=== PATIENT | male | born 1960 | race Caucasian/White ===

== ENCOUNTER 2017-11-08 05:30 | Inpatient (IN) | payer BC ==
[2017-11-08 06:24] LABS: ABS Basophils 0 10^3/ul (0-0.2); ABS Eosinophils 0.2 10^3/ul (0-0.6); ABS Lymphocytes 1.6 10^3/ul (1.0-4.8); ABS Monocytes 0.6 10^3/ul (0-0.8); ABS Neutrophils 2.6 10^3/ul (1.5-7.7); ABS Nucleated RBC 0 10^3/ul; Eosinophil % 3.5 % (0-6); Hematocrit 39 % (42-52); Hemoglobin 13.5 g/dl (14.0-18.0); Lymphocyte % 31.7 % (25-47); Mean Corpuscular HGB Conc 35 g/dl (31-36); Mean Corpuscular Hemoglobin 32 pg (27-31); Mean Corpuscular Volume 91 fL (80-94); Mean Platelet Volume 8 um3 (7.4-10.4); Nucleated Red Blood Cells % 0.1; Platelet Count 176 10^3/ul (150-450); Red Blood Count 4.26 10^6/ul (4.0-5.4); Red Cell Distribution Width 13 % (10.5-15); White Blood Count 5.1 10^3/ul (3.5-10.8)
[2017-11-08 06:29] LABS: INR 0.86 (0.77-1.02)
[2017-11-08 06:39] LABS: EGFR Non-African American 71.5 (>60)
--- NOTE | 2017-11-08 07:58 | RAD ---
INDICATION: Chest pain COMPARISON: None TECHNIQUE: An AP portable view obtained at 0634 hours is submitted. FINDINGS: Bones/Soft Tissues: There are no acute bony findings. There is left-sided cardiac pacemaker/defibrillator Cardiomediastinal: The cardiomediastinal silhouette is normal. Lungs: There is bibasilar hypoventilation but no focal consolidation. Pleura: There are no pleural effusions. Other: None IMPRESSION: EXPIRATORY EXAMINATION WITH BIBASILAR HYPOVENTILATION. SUGGEST FOLLOW-UP INDICATED.
[2017-11-08] MEDS ORDERED: Morphine INJ* 2 MG/ML 1 ML CARPUJECT IV PRN (09:35)
[2017-11-08] MEDS ORDERED: Acetaminophen TAB* 325 MG PO PRN (09:35)
[2017-11-08] MEDS ORDERED: Ondansetron INJ* 2 MG/ML VIAL IV PRN (09:35)
[2017-11-08] MEDS ORDERED: Nitroglycerin TAB 0.4 MG* 0.4 MG TAB SL ONE (09:40)
[2017-11-08] MEDS ORDERED: Nitroglycerin 2% OINT* 1 GM PAK TOPICAL ONE (10:00)
[2017-11-08] MEDS ORDERED: Metoprolol Tartrate TAB* 25 MG PO ONE (10:43)
[2017-11-08] MEDS ORDERED: Perflutren Lipid Microsphere* 3 ML VIAL ONE (14:17)
--- NOTE | 2017-11-08 15:21 | ECHO ---
Patient: GILBERTO RODRIGUES [facility] Rec#: [id number] : 1960 Date: 11/08/2017 Age: 57y Height: 177.8 cm / 70.0 in Weight: 87.54 kg / 192.9 lbs Sex: M BSA: 2.06 Room#: 438 Admit Date#: 11/08/2017 Type: Inpatient Referring: Andrae Mead MD Reading: Andrae Mead MD Pairing Machine Operator: Hyun Wooten [facility] Transthoracic Echocardiogram Indication: CP BP: 118/73 HR: 61 Rhythm: NSR Findings History: IA 2005,s/p AICD implant 2006, HTN with rx. Technical Comments: The study is technically limited due to patient body habitus. Definity used to enhance images. Completed at 1502. Left Ventricle: The left ventricular chamber size is decreased. Posterior wall hypertrophy is observed. The estimated ejection fraction is 50-55%. globally with borderline inferior wall hypokinesis Abnormal left ventricular diastolic function is observed. Left Atrium: The left atrium is normal in size. Right Ventricle: The right ventricular cavity size is normal. The right ventricular global systolic function is mildly reduced. A pacemaker wire is visualized in the right ventricle. Right Atrium: The right atrial cavity size is normal. A pacemaker wire is visualized in the right atrium. Aortic Valve: The aortic valve is trileaflet. There is no evidence of aortic regurgitation. There is no evidence of aortic stenosis. Mitral Valve: The mitral valve leaflets are mildly thickened. There is a trace of mitral regurgitation. There is no evidence of mitral stenosis. Tricuspid Valve: The tricuspid valve leaflets are normal. There is mild tricuspid regurgitation. There is evidence of borderline pulmonary hypertension. There is no tricuspid stenosis. Pulmonic Valve: The pulmonic valve appears normal. There is no evidence of pulmonic regurgitation. There is no pulmonic stenosis. Pericardium: The pericardium appears normal. Aorta: There is moderate dilatation of the ascending aorta.The ascending aorta is not well visualized. There is moderate dilatation of the aortic root. Pulmonary Artery: The main pulmonary artery appears normal. Venous: The venous system is not well visualized. Contrast: Definity was used to optimize study. A total of 3 ml used. Intravenous contrast was used to enhance endocardial border definition. Summary: There was not any prior study for comparison. Conclusions TDS. The endocardium is not well visualized. The estimated ejection fraction is 50-55%. globally with borderline inferior wall hypokinesis Abnormal left ventricular diastolic function is observed. A pacemaker wire is visualized in the right ventricle. A pacemaker wire is visualized in the right atrium. There is a trace of mitral regurgitation. There is mild tricuspid regurgitation. There is evidence of borderline pulmonary hypertension. Measurements Name Value Normal Range RVIDd (AP) 2D 2.5 cm (0.9 - 2.6) RVDdMajor (2D) 4.3 cm (2.2 - 4.4) RAd ISD 4CH 5.2 cm (3.4 - 4.9) RA (A4C)W 3.8 cm (2.9 - 4.6) IVSd (2D) 1 cm (0.6 - 1) LVPWd (2D) 1.1 cm (0.6 - 1) LVIDd (2D) 3.2 cm (3.6 - 5.4) LVIDs (2D) 2.7 cm - LV FS (2D) 16 % (25 - 45) Aortic Annulus 2.4 cm (1.4 - 2.6) Ao root diameter (2D) 4.2 cm (2.1 - 3.5) Ascending Ao 4 cm (2.1 - 3.4) Aortic arch 2.6 cm (1.8 - 3.4) Descending Ao 0.9 cm - LA dimension (AP) 2D 3.7 cm (2.3 - 3.8) LAd ISD 4CH 5.3 cm (2.9 - 5.3) LA ISD 4CH W 3.4 cm (2.5 - 4.5) Name Value Normal Range LA ESV SP 4CH (A/L) 39 ml - LA ESV SP 2CH (A/L) 75 ml - LA ESV BP (A/L) 57 ml - LA ESV BP (A/L) index 27.86 ml/m2 - LA ESV SP 4CH (MOD) 36 ml - LA ESV SP 2CH (MOD) 71 ml - Name Value Normal Range MV E-wave Vmax 0.6 m/sec - MV deceleration time 240 msec - MV A-wave Vmax 0.6 m/sec - MV E:A ratio 0.9 ratio - LV septal e' Vmax 0.07 m/sec - LV lateral e' Vmax 0.09 m/sec - LV E:e' septal ratio 8.57 ratio - LV E:e' lateral ratio 6.67 ratio - Name Value Normal Range AV Vmax 1 m/sec - AV VTI 18.8 cm - AV peak gradient 4.06 mmHg - AV mean gradient 1.71 mmHg - LVOT Vmax 0.8 m/sec - LVOT VTI 16.9 cm - LVOT peak gradient 2.31 mmHg - LVOT mean gradient 0.91 mmHg - Name Value Normal Range TR Vmax 2.6 m/sec - TR peak gradient 26 mmHg - RAP 8 mmHg - RVSP 34 mmHg - Name Value Normal Range PV Vmax 0.7 m/sec - PV peak gradient 2.02 mmHg -
[2017-11-08] MEDS ORDERED: Iohexol 350* (CONTRAST) 500 ML MDV IV ONE (15:28)
--- NOTE | 2017-11-08 16:11 | RAD ---
HISTORY: Chest pain, rule out aortic dissection COMPARISONS: None relevant TECHNIQUE: Multiple contiguous axial CT scans of the chest were obtained after the administration of nonionic intravenous contrast, timed to the systemic arterial phase of contrast enhancement.. Coronal and sagittal multiplanar reformations are also submitted for review. 3-D volumetric reconstructions of the aorta are submitted for review FINDINGS: NECK AND THYROID: The lower neck and thyroid are unremarkable. CHEST WALL: There is no lower cervical, axillary, or supraclavicular lymphadenopathy by size criteria. A left-sided pacemaker is noted HEART AND PERICARDIUM: Coronary calcifications are noted. AORTA AND PULMONARY VASCULATURE: The aorta is tortuous. There is no dilatation or intimal flap to suggest dissection. There is no periaortic hematoma. The pulmonary vasculature is unremarkable. MEDIASTINUM: There is no mediastinal lymphadenopathy by size criteria. EMELI: There is no hilar lymphadenopathy by size criteria. AIRWAY AND ESOPHAGUS: The airway is unremarkable, without endobronchial filling defect. The esophagus is grossly normal. LUNG PARENCHYMA: The lungs are clear. PLEURA: No pleural abnormalities are noted. UPPER ABDOMEN: The upper abdomen is unremarkable. BONES AND SOFT TISSUES: Mild degenerative changes are noted OTHER: None. IMPRESSION: 1. NO INTIMAL FLAP TO SUGGEST AORTIC DISSECTION. 2. TORTUOUS AORTA. 3. NO ANEURYSMAL DILATATION 4. ATHEROSCLEROSIS.
--- NOTE | 2017-11-08 19:46 | CONS ---
CC: Dr. Lisa, Hospitalist Service; Dr. Mead * CARDIOLOGY CONSULTATION: DATE OF CONSULT: 11/08/17 HISTORY OF PRESENT ILLNESS: I was asked by Dr. Lisa to see this pleasant 57 - year-old male patient who presented to the emergency room earlier today after he woke up at about 4 o'clock in the morning with some chest pressure. The patient is with known history of coronary artery disease. He used to follow up at the [facility] with the Cardiology Services there. With history of known coronary artery disease, we are still trying to obtain the full medical records for him including totally occluded chronically right coronary artery with good collaterals according to the patient "mild heart attack either in 2004 or 2005." He does have also a history of nonsustained V-tach with history of syncope. He had EP study that was abnormal according to the patient and needed ICD implantation and generator change in 2017. He had history of hypertension, which he has been on medical treatment, hyperlipidemia on medical treatment. He could not tolerate beta- blockers in the past because his resting heart rate is bradycardic as well as giving him significant fatigue. He is actually with very regular exercise activity, skiing, treadmill, and jogging without limiting symptoms. He said he does have history of gastroesophageal reflux disease and hiatal hernia. He had upper endoscopy in the past. He also had a cardiac catheterization about 5 to [address] Barton at the [facility] that was told he had totally occluded chronically right coronary artery, unsuccessful attempt to open it according to the patient and some noncritical disease of the coronary system. Again, full information not immediately available to me. He had an episode of some chest pain 2 years ago and he had a stress test that was normal. He said he had multiple stress tests in the past including nuclear stress and a 3D echo stress test. He had at this morning he said he was sleeping, part of the dream that he had chest pain and when he woke up he felt chest pressure. There was no jaw pain, no arm pain, no nausea, no vomiting, no fever, no chills, no skin rash, no thrombosis, no hematochezia. He took 3 sublingual nitro, the third one he felt much better. He said when he walked out in the cold to go to the car or the ambulance, he felt the pain. He is chest pain free. He has been chest pain free since emergency room. He had 2 troponins that they were normal 0.01. He had 2 EKGs since his hospitalization that both of them shown sinus bradycardia, concave diffuse ST elevation especially in leads II, III, aVF, V5, V6 without any significant ST-T changes, ischemia or infarction. Cardiology consult was further requested because of his symptoms and consideration for further management. PAST MEDICAL HISTORY: Includes history of systemic arterial hypertension, hyperlipidemia, history of gastroesophageal reflux disease, history of hiatal hernia, history of mild "heart attack," history of cardiac catheterization with chronically totally occluded right coronary artery with good collaterals and unsuccessful attempt to open it. PAST SURGICAL HISTORY: Include history of right knee arthroscopy and history of hernia when he was 6 months old. MEDICATIONS: His medications as an outpatient include losartan 50 mg daily and he is also on Lipitor 40 mg daily and baby aspirin. He could not tolerate beta - blockers in the past. His medications as an inpatient include: 1. Tylenol 650 mg p.o. q.4 hours p.r.n. 2. Aspirin 81 mg daily. 3. Lipitor 40 mg daily. 4. Cozaar 50 mg daily. 5. Prilosec 20 mg daily. 6. Zofran 4 mg IV q.4 hours p.r.n. ALLERGIES: He had no known allergies. FAMILY HISTORY: He has family history of coronary artery disease, although was not premature. SOCIAL HISTORY: He has kids, doing well. REVIEW OF SYSTEMS: His review of all other systems essentially is negative. PHYSICAL EXAMINATION: On exam, he is awake, alert, and oriented. He is not in acute distress. He is chest pain free. Vitals: Blood pressure is 118/73, pulse 67 and sinus rhythm, temperature 98.4, respiratory rate 18. Head and Neck Exam: Normocephalic, atraumatic head. Ears, Nose, and Throat: Essentially benign. Neck: Supple. JVP is not elevated. No carotid bruits. No masses in the neck is appreciated. Chest: Clear to auscultation. No rales , no wheezes, no added sounds appreciated. Heart: Normal. Regular S1, S2. No added sounds. No gallops, no rubs appreciated. Abdomen: Benign, soft. Positive bowel sounds. Extremities: No edema, no cyanosis, no clubbing. Skin exam is normal. Psych: Normal affect and mood. STAND UP COMEDIAN: No focal deficit is appreciated. DIAGNOSTIC STUDIES/LAB DATA: His 2 EKGs as described above. His labs showed sodium 137, potassium 3.5, chloride 103, BUN 12, creatinine 1.07. LFTs normal. Troponin 0.01 x2. CK-MB 1.6. White blood cell 5.1, hemoglobin 13.5, hematocrit 39, platelets 176. His chest x-ray was reported to have expiratory examination with bibasilar hypoventilation, suggest followup as indicated. No pleural effusion appreciated. No focal consolidation. IMPRESSION: The patient is a 57-year-old male patient with: 1. Presentation with symptoms of chest pressure and pain to be further evaluated. He is chest pain free. 2. His troponins x2 are normal. His EKG did not demonstrate any significant EKG changes suggestive of ischemia or infarction. 3. Known history of coronary artery disease followed up for a long period of time at the [facility] with totally occluded chronically right coronary artery with unsuccessful attempts to open it and with good collaterals according to the patient. 4. History of mild "heart attack" as per the patient. 5. Systemic arterial hypertension. 6. Hyperlipidemia. 7. Resting sinus bradycardia. The patient is regularly active with exercises. 8. He could not tolerate beta-blockers in the past. 9. History of nonsustained ventricular tachycardia and syncope. 10. Status post ICD implantation 10 years ago and with generator change in 2017 at the [facility] after he had abnormal positive EP study for ventricular tachycardia, according to him was inducible. 11. Family history of coronary artery disease, although was not premature. 12. Hypokalemia. PLAN: I have discussed him with Dr. Lisa. I had a lengthy talk with the patient today given he is chest pain free, given his troponins are negative, given that EKG did not demonstrate any acute dynamic ST-T changes for ischemia or infarction, I think we can observe him very closely at the present time. He could not tolerate beta-blockers in the past, but I think we will add at the present time amlodipine, we will start with the low dose 2.5 mg daily. We will add nitro very low dose as he is already doing nitro paste. An echocardiogram will be helpful to evaluate his left ventricular systolic function, wall motion , coronary artery disease. A nuclear treadmill stress will be very helpful to identify symptoms willoughby and ischemia, which I explained all of this to the patient today. Any further recommendations will be pending his clinical outcome. If for any reason he became very symptomatic, hemodynamically unstable or troponins become very abnormal or significant EKG changes, consideration should be given to cardiac catheterization to evaluate and followup in his already known coronary artery disease. Thank you very much for asking us to participate in the care of this patient. [id number]/[facility] #: [id number] HIRAL
--- NOTE | 2017-11-08 22:16 | HP ---
HISTORY AND PHYSICAL: DATE OF ADMISSION: 11/08/17 TIME OF MY EVALUATION: 9 a.m. PRIMARY CARE PROVIDER: None. CHIEF COMPLAINT: Chest pain. HISTORY OF PRESENT ILLNESS: Mr. Arauz is a 57-year-old man who recently moved to [place] from [place] and has a history of known coronary artery disease. He awoke this morning from his sleep at 4 a.m. with substernal chest pain with radiation of hte pain to his left arm and sweating in his palms. The patient felt the pain and was actually dreaming about having pain and fully awoke at 4 a.m. He states it was fairly severe rating it 8/10 in intensity. The patient took three 81 mg aspirins and attempted to leave his home to be driven by his to the hospital. He had taken an initial nitroglycerin without relief. The patient felt worsening pain when he left his home and summoned EMS and did experience chest relief on the third nitroglycerin that he took. He was started on oxygen. He was given a fourth nitroglycerin by EMS and experienced a headache, but his chest pain was relieved. The patient reported a history of a myocardial infarction in 2005 with a fully occluded right coronary artery that was not amenable to stenting at that time. There was evidence of left to right collateralization. The patient had a subsequent angiogram in 2013 that showed some recanalization of his RCA (~2%). The patient has an ICD in situ that was replaced in March 2017. The patient has a known cardiomyopathy, though he has not required antianginal medications, and has been managed medically since 2005. he does not tolerate beta blockers. The patient does not have a local landing signal officer. He is interested in establishing one. He is being referred to the hospitalist service for admission. The patient has reexperienced chest pain and the concern for unstable angina has been raised. The patient was initially ordered beta- merlyn. He has been started on nitro paste and he is being admitted to the hospital for management of ongoing chest pain/unstable angina. PAST MEDICAL HISTORY: 1. Known coronary artery disease, status post totally occluded RCA in 2005 in the setting of an CA. 2. Hypertension. 3. Anxiety. 4. GERD. OUTPATIENT MEDICATIONS: 1. Vitamin D 2000 units by mouth daily. 2. Aspirin 81 mg by mouth daily. 3. Lipitor 40 mg by mouth daily. 4. Avapro 300 mg by mouth daily. 5. Protonix 40 mg by mouth daily. ALLERGIES: No known drug allergies. FAMILY HISTORY: No reported family history relevant to the current presentation. 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 REVIEW OF SYSTEMS: Review of 14 systems was accomplished with the patient. This was largely negative except for the pertinent positives as mentioned above in the HPI and past medical history. I do note the patient described upper back pain that was new for him and he reported his last stress test was 3 years ago. This was a stress echo that was generally normal. The patient denied taking any antianginal medications. He has not had any recent upper respiratory or febrile illnesses. He does describe stress in his occupation. PHYSICAL EXAMINATION ON ADMISSION GENERAL APPEARANCE: Middle-aged man, no apparent distress. Awake, alert and oriented x3. Answering questions appropriately. VITALS: Temperature 98.4 Fahrenheit, blood pressure 120s/70s, pulse rate 50s to 60s and regular, respirations 16 and unlabored, oxygen saturation 96% on room air. HEENT: Oropharynx is clear. Mucous membranes dry. No posterior pharyngeal erythema or exudate. LUNGS: Clear to auscultation anteriorly and posteriorly. HEART: Regular rate and rhythm. No murmurs, rubs, or gallops appreciated. ICD in place/in situ. ABDOMEN: Soft and nontender. No masses, rebound, guarding. EXTREMITIES: Without clubbing, cyanosis, or edema. LYMPH: No adenopathy. NEURO: No focal weakness or sensory loss. SKIN: Dry and intact. No rashes, lesions, or breakdown. PSYCH: Normal affect. No acute anxiety or depression. ADMISSION DATA: Sodium 137, potassium 3.5, chloride 103, bicarb 28, BUN 12, creatinine 1.07, glucose 104. Lactic acid 1.3. Calcium 8.8. Magnesium 1.9. Total bilirubin 0.6, AST 24, ALT 37, alk phos 52. CK-MB 1.6. Troponin 1.01 x2 values at 0555 hours and 0953 hours. Total protein 5.8. Albumin 3.6. IMAGING: His EKG was in normal sinus rhythm. No evidence of active ischemia, ST or T wave changes. His CTA did not show any evidence of aortic dissection, but did show a tortuous aorta with no aneurysmal dilatation, but noted atherosclerosis. IMPRESSION: Mr. Arauz is a 57-year-old gentleman with known coronary artery disease, status post myocardial infarction in 2005, status post ICD at that time , now with concerning chest pain very responsive to nitroglycerin with negative troponins x 2 and concern for unstable angina/myocardial infarction in evolution. Mr. Arauz is being placed on telemetry. He will be treated with nitro paste to suppress his angina. He is currently pain free. I have consulted Dr. Mead, who kindly saw the patient and agrees with ruling out myocardial infarction and then proceeding with a stress test providing the patient does not have further pain. The patient had an echocardiogram, which showed normal ejection fraction with borderline inferior wall hypokinesis - certainly consistent with his history of myocardial infarction and total RCA occlusion. Pacemaker wires were visualized in the right ventricle and right atrium. There was borderline pulmonary hypertension. Otherwise, the findings were unremarkable. The patient is in good spirits at this time. The CTA was accomplished as above. He will have IV morphine and antianginal step therapy ordered on a p.r.n. basis and the patient will proceed with a stress test on the morning of 11/09/17. Cardiology consultation was ordered and completed and is appreciated. Dr. Mead will likely continue to follow the patient in the community. I will add on a cholesterol panel to assess the adequacy of his lipid control. Further decisions will be based on his clinical course. TOTAL SPENT: Total time taken to admit Mr. Arauz was 75 minutes, greater than half that time spent at the bedside and explaining the patient's plan of care and communicating with his former landing signal officer in [place]. [id number]/[facility] #: [id number] HIRAL
--- NOTE | 2017-11-09 00:35 | ED ---
Yovany Mireles Gabriel, scribed for Lissa Jenkins MD on 11/08/17 at 0608 . HPI Chest Pain - HPI Summary HPI Summary: This patient is a 57 year old M BIBA to [facility] accompanied by his with a chief complaint of CP that woke him from his sleep at 0400 this morning. The patient rates the pain 8/10 in severity at onset. Took 3 baby ASA and tums at 0400. At 0420 pt took NTG at with no relief so he took another nitro a few minutes after and then her took a 3rd nitro as EMS arrived. This along with O2 given from EMS his pain dropped. Pt was given a 4th nitro by EMS and currently has no CP but is having a headache. Hx of CO in 2005 with fully occluded right coronary artery. In 2013 2% recanalization on the right side. Has ICD that was changed in 03/2017. - History of Current Complaint Chief Complaint: EDChestPainROMI Time Seen by Provider: 11/08/17 05:58 Hx Obtained From: Patient Onset/Duration: Started Hours Ago, Resolved Timing: Lasting Hours Initial Severity: Severe Current Severity: None Pain Intensity: 8 Pain Scale Used: 0-10 Numeric Chest Pain Location: Diffuse Chest Pain Radiates: No Associated Signs and Symptoms: Positive: Negative, Headaches - Allergy/Home Medications Allergies/Adverse Reactions: Allergies Allergy/AdvReac Type Severity Reaction Status Date / Time No Known Allergies Allergy Verified 11/08/17 05:44 PMH/Surg Hx/FS Hx/Imm Hx Cardiovascular History: Reports: Hx Angina, Hx Hypercholesterolemia, Hx Myocardial Infarction, Hx Pacemaker/ICD Respiratory History: Denies: Hx Chronic Obstructive Pulmonary Disease (COPD) GI History: Reports: Hx Gastroesophageal Reflux Disease Denies: Hx Cirrhosis, Hx Diverticulosis Sensory History: Denies: Hx Eye Injury, Hx Eye Prosthesis Infectious Disease History: No Infectious Disease History: Reports: Traveled Outside the [place] in Last 30 Days - Family History Known Family History: Positive: Cardiac Disease Negative: Renal Disease, Respiratory Disease, Seizure Disorder - Social History Occupation: Employed Full-time Lives: With Family Alcohol Use: Occasionally Substance Use Type: Reports: None Smoking Status (MU): Never Smoked Tobacco Review of Systems Negative: Fever Positive: Chest Pain Positive: Headache All Other Systems Reviewed And Are Negative: Yes Physical Exam - Summary Physical Exam Summary: VITAL SIGNS: Reviewed. GENERAL: Patient is a well-developed and nourished male who is lying comfortable in the stretcher. Patient is not in any acute respiratory distress. HEAD AND FACE: No signs of trauma. No ecchymosis, hematomas or skull depressions. No sinus tenderness. EYES: PERRLA, EOMI x 2, No injected conjunctiva, no nystagmus. EARS: Hearing grossly intact. Ear canals and tympanic membranes are within normal limits. MOUTH: Oropharynx within normal limits. NECK: Supple, trachea is midline, no adenopathy, no JVD, no carotid bruit, no c- spine tenderness, neck with full ROM. CHEST: Symmetric, no tenderness at palpation LUNGS: Clear to auscultation bilaterally. No wheezing or crackles. CVS: Regular rate and rhythm, S1 and S2 present, no murmurs or gallops appreciated. ABDOMEN: Soft, non-tender. No signs of distention. No rebound no guarding, and no masses palpated. Bowel sounds are normal. EXTREMITIES: FROM in all major joints, no edema, no cyanosis or clubbing. NEURO: Alert and oriented x 3. No acute neurological deficits. Speech is normal and follows commands. SKIN: Dry and warm Triage Information Reviewed: Yes Vital Signs On Initial Exam: Initial Vitals Temp Pulse Resp BP Pulse Ox 98.4 F 72 18 103/61 97 11/08/17 05:38 11/08/17 05:38 11/08/17 05:38 11/08/17 05:38 11/08/17 05:38 Vital Signs Reviewed: Yes Diagnostics - Vital Signs Vital Signs Temp Pulse Resp BP Pulse Ox 11/08/17 05:38 98.4 F 72 18 103/61 97 - Laboratory Result Diagrams: 11/08/17 05:55 11/08/17 05:55 Lab Statement: Any lab studies that have been ordered have been reviewed, and results considered in the medical decision making process. - Radiology cxr Radiology Interpretation Completed By: ED Physician - no acute process - EKG 0545 Cardiac Rate: NL EKG Rhythm: Sinus Rhythm - at 60 BPM EKG Interpretation: non specific t wave changes Chest Pain Course/Dx - Course Assessment/Plan: This patient is a 57 year old M BIBA to [facility] accompanied by his with a chief complaint of CP that woke him from his sleep at 0400 this morning. The patient rates the pain 8/10 in severity at onset. Took 3 baby ASA and tums at 0400. At 0420 pt took NTG at with no relief so he took another nitro a few minutes after and then her took a 3rd nitro as EMS arrived. This along with O2 given from EMS his pain dropped. Pt was given a 4th nitro by EMS and currently has no CP but is having a headache. Hx of CO in 2005 with fully occluded right coronary artery. In 2013 2% recanalization on the right side. Has ICD that was changed in 03/2017. An EKG reveals nsr at 60 BPM non specific t wave changes. CXR reveals, no acute process. Test results with no significant abnormalities. Dx chest pain. We discussed patient care with Dr. Finley and they accepted the patient for admittance. Patient will be admitted. The patient is agreeable with this plan. - Diagnoses Provider Diagnoses: Chest pain Discharge - Discharge Plan Condition: Fair Disposition: ADMITTED TO [facility] Referrals: Non Staff,Doctor [Primary Care Provider] - The documentation as recorded by the Yovany wright Gabriel accurately reflects the service I personally performed and the decisions made by me, Lissa Jenkins MD.
[2017-11-09] MEDS ORDERED: Atorvastatin* 40 MG TAB PO SCH (09:00)
[2017-11-09] MEDS ORDERED: Losartan TAB* 25 MG PO SCH (09:00)
--- NOTE | 2017-11-09 10:50 | RAD ---
Edited for charges. INDICATION: Chest pain. Cardiac pacemaker. COMPARISON: November 08, [address] TECHNIQUE: 10.900 mCi of Tc-99m Myoview were administered IV. SPECT images of the heart were obtained. Later on the same day. Under the direction of Dr. eTsfaye, an exercise stress test was performed. The patient achieved a peak heart rate of 130 bpm, 79 % of the age- predicted maximum. Subsequently, the patient was given an IV injection of 25.900 mCi Tc- 99m Myoview. SPECT images of the heart were obtained and a gated wall motion study was performed. FINDINGS: Gated wall motion images were obtained at stress and demonstrate wall motion to be within normal limits. The calculated left ventricular ejection fraction is 64 % at stress. Estimated LEFT ventricular end diastolic volume is 108 mL. TID 0.99. Artifact from diaphragmatic attenuation and inferior gut activity noted. Grossly fixed decreased activity at the inferior wall primarily on the nonattenuation corrected series appears secondary to diaphragmatic attenuation. Small region of decreased perfusion at the basilar anterior wall segments at stress with reversal at rest suspicious for potential ischemia. IMPRESSION: 1. Suggestion of a potential solitary small focus of ischemia at the basilar segment of the anterior wall. 2. Normal LEFT ventricular wall motion and estimated end-diastolic volume. ASSESSMENT: Low risk based on nuclear portion. Based on imaging criteria from ACC/AHA 2002 Guideline Update for the Management of Patients With Chronic Stable Angina Table 23. Noninvasive Risk Stratification. MTDD
[2017-11-09] MEDS: Omeprazole CAP* 20 MG PO SCH (10:59)
[2017-11-09] MEDS: amLODIPine TAB* 5 MG PO SCH (10:59)
[2017-11-09] MEDS: Aspirin EC Low Dose* 81 MG TAB.EC PO SCH (10:59)
--- NOTE | 2017-11-09 15:58 | PN ---
Subjective Date of Service: 11/09/17 Interval History: Pt had CP during stress test. Initially requested transfer to [facility] , but later on declined to be transferred and agreed to stay at [facility] Currently CP free Objective Active Medications: Acetaminophen (Tylenol Tab*) 650 mg PO Q4H PRN PRN Reason: FEVER/PAIN Last Admin: 11/08/17 19:58 Dose: 650 mg Amlodipine Besylate (Norvasc Tab*) 2.5 mg PO DAILY [facility] Last Admin: 11/09/17 10:59 Dose: 2.5 mg Aspirin (Aspirin Ec Low Dose*) 81 mg PO DAILY [facility] Last Admin: 11/09/17 10:59 Dose: 81 mg Atorvastatin Calcium (Lipitor*) 40 mg PO DAILY [facility] Last Admin: 11/09/17 10:59 Dose: 40 mg Losartan Potassium (Cozaar Tab*) 50 mg PO DAILY [facility] Last Admin: 11/09/17 10:59 Dose: 50 mg Morphine Sulfate (Morphine Inj (Syringe)*) 2 mg IV Q4H PRN PRN Reason: PAIN Omeprazole (Prilosec Cap*) 20 mg PO DAILY [facility] Last Admin: 11/09/17 10:59 Dose: 20 mg Ondansetron HCl (Zofran Inj*) 4 mg IV Q4H PRN PRN Reason: NAUSEA/VOMITING Vital Signs - 8 hr 11/09/17 11/09/17 11/09/17 08:28 11:08 15:29 Temperature 98.3 F 97.6 F 97.5 F Pulse Rate 56 61 76 Respiratory 16 16 14 Rate Blood Pressure 119/72 144/83 113/63 (mmHg) O2 Sat by Pulse 97 100 96 Oximetry Oxygen Devices in Use Now: None Appearance: 57 yo m in nAD, AAOx3 Eyes: No Scleral Icterus, PERRLA Ears/Nose/Mouth/Throat: NL Teeth, Lips, Gums, Mucous Membranes Moist Neck: NL Appearance and Movements; NL JVP, Trachea Midline Respiratory: Symmetrical Chest Expansion and Respiratory Effort, Clear to Auscultation Cardiovascular: NL Sounds; No Murmurs; No JVD, RRR Abdominal: NL Sounds; No Tenderness; No Distention Lymphatic: No Cervical Adenopathy Extremities: No Edema Skin: No Rash or Ulcers, No Nodules or Sclerosis Neurological: Alert and Oriented x 3, NL Muscle Strength and Tone Result Diagrams: 11/08/17 05:55 11/08/17 05:55 Assess/Plan/Problems-Billing Assessment: 57 yo M with h/o CAD presents with CP. CP recurred during stress test today. - Patient Problems (1) Chest pain Comment: likely due to angina. Pt has h/o exertional angina in the past. His cath in 2012 showed critical RCA stenosis-not amenable for intervention Cont ASA Cath planned for tomorrow. Appreciate Dr. Hess's consult. stress test with no marked changes, but pt's symptoms are worrisome and cath is planned for AM. Due to low SBP losartan will be held and low dose of Norvasc will be continued (2) Dyslipidemia Comment: cont current statin (3) GERD (gastroesophageal reflux disease) Comment: Protonix substituted with omeprazole (4) DVT prophylaxis Comment: Lovenox Status and Disposition: OBV
[2017-11-09] MEDS ORDERED: Enoxaparin(*) 40 MG/0.4 ML SYR SUBCUT SCH (16:00)
[2017-11-09] MEDS ORDERED: NS 0.45% KCl 20 Meq 1000 ML* 1,000 ML IV SCH (17:00)
[2017-11-09] MEDS: Potassium Chloride LIQUID* 20 MEQ PACKET PO SCH (17:02)
[2017-11-09] MEDS ORDERED: Atorvastatin* 80 MG TAB PO SCH (17:51)
[2017-11-10 05:19] LABS: EGFR Non-African American 67.1 (>60)
--- NOTE | 2017-11-10 08:24 | PN ---
Subjective Date of Service: 11/10/17 Interval History: Pt stated that he had a very mild pain in left upper chest this aM upon awakening, lated seconds and it was hi "usual angina pain" that he has had " from time to time" Objective Active Medications: Acetaminophen (Tylenol Tab*) 650 mg PO Q4H PRN PRN Reason: FEVER/PAIN Last Admin: 11/08/17 19:58 Dose: 650 mg Amlodipine Besylate (Norvasc Tab*) 2.5 mg PO DAILY [facility] Last Admin: 11/09/17 10:59 Dose: 2.5 mg Aspirin (Aspirin Ec Low Dose*) 81 mg PO DAILY [facility] Last Admin: 11/09/17 10:59 Dose: 81 mg Atorvastatin Calcium (Lipitor*) 80 mg PO DAILY [facility] Sodium Chloride (Ns 0.9% 1000 Ml*) 1,000 mls @ 100 mls/hr IV .per rate [facility] Morphine Sulfate (Morphine Inj (Syringe)*) 2 mg IV Q4H PRN PRN Reason: PAIN Omeprazole (Prilosec Cap*) 20 mg PO DAILY [facility] Last Admin: 11/09/17 10:59 Dose: 20 mg Ondansetron HCl (Zofran Inj*) 4 mg IV Q4H PRN PRN Reason: NAUSEA/VOMITING Potassium Chloride (Klor-Con Liquid*) 20 meq PO DAILY [facility] Last Admin: 11/09/17 17:02 Dose: 20 meq Vital Signs - 8 hr 11/10/17 07:18 Temperature 97.4 F Pulse Rate 62 Respiratory 16 Rate Blood Pressure 130/80 (mmHg) O2 Sat by Pulse 100 Oximetry Oxygen Devices in Use Now: None Appearance: 57 yo M in nAd, aAOx3 Eyes: No Scleral Icterus, PERRLA Ears/Nose/Mouth/Throat: NL Teeth, Lips, Gums, Mucous Membranes Moist Neck: NL Appearance and Movements; NL JVP, Trachea Midline Respiratory: Symmetrical Chest Expansion and Respiratory Effort, Clear to Auscultation Cardiovascular: NL Sounds; No Murmurs; No JVD, RRR Abdominal: NL Sounds; No Tenderness; No Distention Lymphatic: No Cervical Adenopathy Extremities: No Edema, No Clubbing, Cyanosis Skin: No Rash or Ulcers, No Nodules or Sclerosis Neurological: Alert and Oriented x 3, NL Muscle Strength and Tone Result Diagrams: 11/08/17 05:55 11/10/17 06:48 Assess/Plan/Problems-Billing Assessment: 57 yo M with h/o CAD presents with CP. CP recurred during stress test today. - Patient Problems (1) Chest pain Comment: likely due to angina. Pt has h/o exertional angina in the past. His cath in 2012 showed critical RCA stenosis-not amenable for intervention Cont ASA Cath planned for today. Appreciate Dr. Hess's consult. stress test with no marked changes, but pt's symptoms are worrisome and cath is planned for AM. Due to low SBP losartan was held and low dose of Norvasc will be continued (2) Dyslipidemia Comment: lipitor increased from 40 to 80 mg by cardiology (3) GERD (gastroesophageal reflux disease) Comment: Protonix substituted with omeprazole (4) DVT prophylaxis Comment: Lovenox Status and Disposition: OBV will be switched to inpatient
[2017-11-10] MEDS ORDERED: NS 0.9% 1000 ML* 1,000 ML IV SCH ×2 (09:00→13:30)
[2017-11-10] MEDS: Aspirin EC Low Dose* 81 MG TAB.EC PO SCH (09:58)
[2017-11-10] MEDS: amLODIPine TAB* 5 MG PO SCH (09:58)
[2017-11-10] MEDS: Omeprazole CAP* 20 MG PO SCH (09:58)
[2017-11-10] MEDS: Potassium Chloride LIQUID* 20 MEQ PACKET PO SCH (09:59)
[2017-11-10] MEDS ORDERED: Midazolam* 1 MG/ML 10 ML VIAL (10 MG) ONE (11:57)
[2017-11-10] MEDS ORDERED: Heparin(*) 1000 UNIT/ML 10 ML VIAL CATH LAB IV ONE (11:57)
[2017-11-10] MEDS ORDERED: nitroGLYCERIN DRIP* 25,000 MCG/250 ML BTL ONE (11:57)
[2017-11-10] MEDS ORDERED: fentaNYL* 50 MCG/ML 2 ML VIAL (100 MCG VIAL) ONE ×2 (11:57→12:31)
[2017-11-10] MEDS ORDERED: VERAPAMIL 2.5 MG/ML 2 ML VIAL ** 5 mg/2 ml ONE (11:57)
[2017-11-10] MEDS ORDERED: Lidocaine 1% INJ* 10 MG/ML 30 ML SDV ONE (11:57)
[2017-11-10] MEDS ORDERED: Heparin 2 UNITS/ML IVPREMIX* 2,000 ML IV ONE (11:57)
[2017-11-10] MEDS ORDERED: Iohexol 350 (CONTRAST) 200 ML MDV IV ONE (11:57)
[2017-11-10] MEDS ORDERED: Iodixanol* (CONTRAST) 320 MG/ML 100 ML SDV ONE ×2 (12:16→12:18)
[2017-11-10] MEDS ORDERED: Atropine SYRINGE* 0.1 MG/ML 10 ML SYRINGE (1 MG) ONE (13:10)
[2017-11-10 18:21] VITALS: BP 109/74
--- NOTE | 2017-11-11 16:52 | DS ---
CC: Dr. Clint Calloway from [facility] Cardiology Department; Dr. Mead; Dr. Hess; Dr. Tesfaye * DISCHARGE SUMMARY: DATE OF ADMISSION: 11/08/17 DATE OF DISCHARGE: 11/10/17 DISCHARGE DIAGNOSES: Chest pain likely due to angina, status post cardiac catheterization on 11/10/17 with no intervention needed. From the verbal report that I got from Dr. Tesfaye, the overhead irrigator, the patient' s coronary vasculature was basically unchanged from prior cardiac catheterization with occlusion of RCA and presence of collaterals. SECONDARY DIAGNOSES: 1. History of coronary artery disease with occlusion of RCA in the past. 2. History of hypertension. 3. Anxiety. 4. Gastroesophageal reflux disease. 5. Dyslipidemia. MEDICATIONS AT DISCHARGE: Include: 1. Protonix 40 mg daily. 2. Vitamin D3 2000 units daily. 3. Lipitor 80 mg daily. 4. Aspirin 81 mg daily. 5. Amlodipine 2.5 mg daily. Please note that the changes were as follows: 1. The patient's Lipitor dose was increased from 40 to 80 mg. 2. The patient's Avapro was discontinued and the patient was started on low- dose Norvasc. 3. The patient was also instructed by Cardiology to use nitroglycerin as needed and prior to exercise. LABORATORY DATA AND STUDIES PERFORMED DURING THE HOSPITAL STAY: Included: On , sodium of 137, potassium of 4.0, chloride 106, carbon dioxide 25, BUN 13 , creatinine 1.13. Liver function tests were unremarkable at admission. The patient's troponins continued to be negative at 0.01 throughout the hospital stay. Triglycerides of 106, cholesterol total of 140, LDL of 77, HDL of 42. Nuclear medicine cardiac stress test documented on 11/09/17 showed suggestion of potential solitary small focus of ischemia in the basilar segment of the anterior wall. Normal left ventricular wall motion and estimated end diastolic volume. The patient's EF was noted to be 64 at stress. Please note that the patient's exercise part of stress test was submaximal due to development of chest pain during the treadmill. CT angiogram of the chest obtained on 11/08/17, impression: "No intimal flap to suggest aortic dissection. Tortuous aorta. No aneurysmal dilatation. Atherosclerosis." CONSULTATIONS DURING THE HOSPITAL STAY: Included Dr. Mead and Dr. Hess from Cardiology and Dr. Tesfaye from Interventional Cardiology. PROCEDURES PERFORMED DURING THE HOSPITAL STAY: Included cardiac catheterization performed by Dr. Tesfaye on 11/10/17 with formal report pending at the time of dictation. HOSPITALIZATION COURSE: Go Arauz is a 57-year-old male with history of known coronary artery disease and known angina, who presented to the hospital complaining of worsening of his angina symptoms in the past couple of days. For further details of the patient's presentation, please see the history and physical dictated on 11/08/[address] Lisa. Shortly, the patient had no recurrence of chest pain apart from one short lasting episode on the day of cardiac catheterization in the morning. The patient had a cardiac stress test, which showed basically low risk, but due to the patient's symptomatology, Dr. Tesfaye was asked to see the patient for evaluation of possibility of cardiac catheterization. Dr. Tesfaye performed a cardiac catheterization on 11/10/17 with the formal report still pending, but with the verbal report that I received from the Cardiology was noted that the patient's cardiac catheterization and coronary vasculature was basically unchanged from prior cardiac catheterization with occluded right coronary artery and known collaterals. During the patient's hospital stay, it was decided that better for angina control would be to hold the patient's Avapro and start the patient on low-dose of amlodipine. In the past, the patient had intolerance to amlodipine due to feeling dizzy. The bag bundler recommended amlodipine 2.5 mg daily and the patient tolerated it well. The patient's physical exam at discharge is basically benign. The patient is recommended to follow up with cardiology department, Dr. Hess in approximately [address] Tesfaye already included his post cardiac catheterization recommendations and the discharge paper work that the patient is going to receive. Dr. Tesfaye will also see the patient for followup next week. The patient is also recommended to follow up with the primary care provider of his choice. The patient is in the process of moving from [facility] to [place] and has not established a primary care provider yet. Please note that this is a short summary of the patient's hospitalization, please refer to further medical records for details. For physical exam at discharge, please see daily progress note. TIME SPENT: Approximately 35 minutes was spent on the patient's discharge. [id number]/[facility] #: [id number] [facility]
--- NOTE | 2017-11-16 12:14 | CATH ---
CC: Dr. Zaida Calloway; Dr. Hess. CATH REPORT: DATE OF CATH: 11/10/17 RESIDENTIAL REAL ESTATE ASSISTANT: Dr. Zaida Calloway at [facility]. PROCEDURES: Right radial artery access, bilateral selective coronary cineangiography. 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 He recently had a decrease in exercise tolerance with angina at a lower level of exertion, stress imaging confirmed angina at a relatively low work load. PROCEDURE ACCESS: Right radial artery with ultrasound guidance. SHEATH: A 6F slender. MEDICATIONS: 1. Subcu lidocaine. 2. IV Versed. 3. IV Fentanyl. 4. Heparin 3000 units. 5. Verapamil 3 mg. 6. Nitroglycerin 300 mcg IA. He received atropine 0.5 mg for a vagal reaction shortly after the procedure onset. DIAGNOSTIC CATHETER: A 5F TIG4. HEMODYNAMICS: Initial BP 143/92, final BP 116/78. ANGIOGRAPHY: Right Subclavian: Injection confirmed a patent subclavian with some tortuosity, this was easily traversed with a Wholey wire. Left Main: The left main is relatively short, has no significant stenosis. LAD: The LAD has moderate calcification, it is moderate in size, extends to the apex, it supplies a very small first diagonal, a moderate to small second diagonal which has 50% stenosis, distal LAD has no significant stenosis. The LAD provides transseptal collaterals to the RPDA which is not in continuity with the posterior lateral circulation or the proximal RCA. Circumflex: The circumflex is a moderate, not dominant, supplies a single large marginal branch which supplies the entire obtuse margin. It has luminal irregularity, but no significant stenosis, circumflex ends with a small posterolateral. This is appreciated by an atrial branch which provides collaterals to the distal RCA with filling of 2 posterolaterals. The distal circumflex has a 30% to 40% stenosis before a very small posterolateral branch. RCA: The RCA is large, dominant, has a proximal occlusion with bridging collaterals, there is also a transatrial collateral to the distal RCA. The acute marginal branch and corresponding portion of the RCA is supplied through the bridging collaterals. CONCLUSION: 1. Two vessel disease with mild stenosis of diagonal branch and very distal circumflex, and RCA with known HELPDESK TECHNICIAN. Distal RCA has 3 different zones of potential ischemia, each with its own collateral network. We are waiting for his old films for comparison. 2. Successful right radial artery access. [id number]/[facility] #: [id number] HIRAL
== END 2017-11-10 18:10 | disposition home or self-care (01) | DRG 192 ==
LOC: ED 05:30 → MEDTELE 09:35 → OBSVTOIN 11-10 09:00
PROVIDERS: ADMIT Internal Medicine; ATTEND Internal Medicine
PROC: B2111ZZ Fluoroscopy of Multiple Coronary Arteries using Low Osmolar Contrast (ICD-10-PCS; 2017-11-10)
PROC: 4A12XM4 Monitoring of Cardiac Stress, External Approach (ICD-10-PCS; principal; 2017-11-10 12:00)
DX: I25.119 Atherosclerotic heart disease of native coronary artery with unspecified angina pectoris (principal); I42.9 Cardiomyopathy, unspecified; I10 Essential (primary) hypertension; F41.9 Anxiety disorder, unspecified; K21.9 Gastro-esophageal reflux disease without esophagitis; E78.5 Hyperlipidemia, unspecified; R00.1 Bradycardia, unspecified; E87.6 Hypokalemia; Z82.49 Family history of ischemic heart disease and other diseases of the circulatory system; I25.2 Old myocardial infarction; Z95.810 Presence of automatic (implantable) cardiac defibrillator
CPT/HCPCS: 36415; 71045; 71275; 76937; 78452; 80048; 80053; 80061; 82553; 83605; 83735; 84484; 85025; 85610; 85730; 93005; 93017; 93306; 93454; 96374; 99156; 99157; 99284; A9270-GY; A9502; C8929; G0378; J0461; J1644; J1650; J2250; J3010; Q9967

== ENCOUNTER 2017-11-11 04:28 | Emergency (ER) | payer BC ==
[2017-11-11] MEDS ORDERED: Morphine INJ* 4 MG/ML 1 ML CARPUJECT IV ONE (04:54)
[2017-11-11] MEDS ORDERED: Ondansetron INJ* 2 MG/ML VIAL IV ONE (04:54)
[2017-11-11] MEDS ORDERED: Morphine INJ* 10 MG/ML 1 ML CARPUJECT IV ONE (05:30)
[2017-11-11 05:32] LABS: ABS Basophils 0.1 10^3/ul (0-0.2); ABS Eosinophils 0.2 10^3/ul (0-0.6); ABS Lymphocytes 1.7 10^3/ul (1.0-4.8); ABS Monocytes 0.5 10^3/ul (0-0.8); ABS Neutrophils 3.8 10^3/ul (1.5-7.7); ABS Nucleated RBC 0 10^3/ul; Eosinophil % 3.8 % (0-6); Hematocrit 42 % (42-52); Hemoglobin 14.4 g/dl (14.0-18.0); Lymphocyte % 26.6 % (25-47); Mean Corpuscular HGB Conc 35 g/dl (31-36); Mean Corpuscular Hemoglobin 31 pg (27-31); Mean Corpuscular Volume 91 fL (80-94); Mean Platelet Volume 7 um3 (7.4-10.4); Nucleated Red Blood Cells % 0; Platelet Count 180 10^3/ul (150-450); Red Blood Count 4.61 10^6/ul (4.0-5.4); Red Cell Distribution Width 13 % (10.5-15); White Blood Count 6.4 10^3/ul (3.5-10.8)
[2017-11-11 05:43] LABS: INR 0.9 (0.77-1.02)
[2017-11-11] MEDS ORDERED: Iohexol 350* (CONTRAST) 500 ML MDV IV ONE (06:42)
[2017-11-11 08:14] VITALS: BP 111/75
--- NOTE | 2017-11-11 08:43 | RAD ---
Indication: RIGHT arm pain. Heart catheterization performed one day prior with radial artery access. Comparison: November 11, 2017 CT. November 08, 2017 chest radiograph. Technique: Upright AP 0510 hours Report: No focal pulmonary lesion, compelling alveolar consolidation, pleural effusion, pneumothorax. Top normal heart size. RIGHT ventricular level pacemaker device leads. Unremarkable central pulmonary vasculature. Moderately tortuous descending thoracic aorta. IMPRESSION: No evidence for acute intrathoracic disease.
--- NOTE | 2017-11-11 09:29 | RAD ---
INDICATION: RIGHT arm pain. Cardiac catheterization done one day prior with radial artery access. Assess for aortic dissection. COMPARISON: November 08, 2017 CT TECHNIQUE: Multidetector CT images were obtained from the lung apices to the upper abdomen with 100 mL Omnipaque 350 IV contrast. Aortic angiogram protocol. Multiplanar reformation including with maximum intensity projection. REPORT: Minimal bilateral dependent atelectasis. Negative for pleural effusion or pneumothorax. Negative for thoracic lymphadenopathy. Mild cardiomegaly. Negative for pericardial effusion. Normal diameter thoracic aorta without evidence for dissection. Typical motion artifact noted at the aortic root. Coronary artery calcifications noted. RIGHT ventricular level pacemaker lead. No gross filling defects evident within the pulmonary arteries to indicate pulmonary embolism. 1.2 cm subcapsular water density cyst at the RIGHT hepatic lobe. Negative for suspicious thoracic osseous lesions or fractures. IMPRESSION: No evidence for dissection of the thoracic aorta.
--- NOTE | 2017-11-11 18:40 | ED ---
Lino Mireles Thomas, scribed for Rafael Veras MD on 11/11/17 at 0758 . Progress - Progress Note Progress Note: The patient is a sign out from Dr. Jenkins at shift change, pending CTA Chest/ Thorax. The patient complains of pain that began in his right arm but has migrated throughout his back and shoulder. He no longer has arm pain. He describes waves of intense pain. He denies chest pain, palpitations, and shortness of breath. PHYSICAL EXAM: VITAL SIGNS: Reviewed. GENERAL: Patient is a well-developed and nourished male who is lying comfortable in the stretcher. Patient is not in any acute respiratory distress. HEAD AND FACE: No signs of trauma. No ecchymosis, hematomas or skull depressions. No sinus tenderness. EYES: PERRLA, EOMI x 2, No injected conjunctiva, no nystagmus. EARS: Hearing grossly intact. Ear canals and tympanic membranes are within normal limits. MOUTH: Oropharynx within normal limits. NECK: Supple, trachea is midline, no adenopathy, no JVD, no carotid bruit, no c- spine tenderness, neck with full ROM. CHEST: Symmetric, no tenderness at palpation LUNGS: Clear to auscultation bilaterally. No wheezing or crackles. CVS: Regular rate and rhythm, S1 and S2 present, no murmurs or gallops appreciated. ABDOMEN: Soft, non-tender. No signs of distention. No rebound no guarding, and no masses palpated. Bowel sounds are normal. EXTREMITIES: FROM in all major joints, no edema, no cyanosis or clubbing. NEURO: Alert and oriented x 3. No acute neurological deficits. Speech is normal and follows commands. SKIN: Dry and warm At 07:56, I spoke with the [id number] radiologist, and that physician reports there is no dissection or PE. CTA Chest Interpreted by radiologist. Impression: No pulmonary embolism. No aortic dissection or aneurysm. No pneumonia or pleural effusions. Left chest AICD and CAD, also seen on 11/08/17. Small right hepatic cyst or hemangioma. Dr. Veras has reviewed this report. ASSESSMENT AND PLAN: Because the CT is negative, and after my consult with Dr. Tesfaye, the patient will be discharged home with follow up by primary care. Condition is stable. Course/Dx - Diagnoses Provider Diagnoses: Back pain - Provider Notifications Discussed Care Of Patient With: Yomi Tesfaye Time Discussed With Above Provider: 08:23 Instructed by Provider To: Other - Dr. Tesfaye, interventional cardiology, says that because there is no dissection and no PE, there is nothing else to rule out. He recommends ibuprofen for the pain. The documentation as recorded by the Lino wright Thomas accurately reflects the service I personally performed and the decisions made by me, Rafael Veras MD.
--- NOTE | 2017-11-11 19:32 | ED ---
Angel Mireles Jason, scribed for Lissa Jenkins MD on 11/11/17 at 0457 . Upper Extremity Pain - HPI Summary HPI Summary: This patient is a 57 year old M presenting to [facility] accompanied by female drapery and upholstery estimator with a chief complaint of upper extremity pain since 0300 today. He states that he felt a persistent and sharp pain that started in the right arm at 0300 and travelled up to the shoulder and onto the left back. Patient includes he took 4 baby aspirin pills BOILING OFF WINDER and was in [facility] at 1200 yesterday with a catheter in his artery. The patient rates the pain 6/10 in severity. Symptoms aggravated by nothing. Symptoms alleviated by nothing. - History of Current Complaint Chief Complaint: EDExtremityUpper Stated Complaint: POST CATHETERIZATION PROBLEMS Time Seen by Provider: 11/11/17 04:44 Hx Obtained From: Patient Onset/Duration: Started Minutes Ago - since 0300 today, Still Present Timing: Constant Pain Location: Other: Character: Sharp Aggravating Factor(s): Nothing Alleviating Factor(s): Nothing Associated Signs & Symptoms: Positive: Other - pain that began in the right arm and travelled through the right shoulder and onto the left back - Allergies/Home Medications Allergies/Adverse Reactions: Allergies Allergy/AdvReac Type Severity Reaction Status Date / Time No Known Allergies Allergy Verified 11/08/17 05:44 PMH/Surg Hx/FS Hx/Imm Hx Previously Healthy: No Endocrine/Hematology History: Denies: Hx Diabetes Cardiovascular History: Reports: Hx Angina, Hx Auto Implanted Cardiovert Defib, Hx Coronary Artery Disease, Hx Hypercholesterolemia, Hx Myocardial Infarction, Hx Pacemaker/ICD, Hx Syncope, Other Cardiovascular Problems/Disorders - VT, RCA occlusion Respiratory History: Denies: Hx Asthma, Hx Chronic Obstructive Pulmonary Disease (COPD), Hx Pneumonia, Hx Pulmonary Embolism GI History: Reports: Hx Gastroesophageal Reflux Disease, Hx Hiatal Hernia Denies: Hx Cirrhosis, Hx Diverticulosis History: Denies: Hx Dialysis Sensory History: Reports: Hx Contacts or Glasses Denies: Hx Eye Injury, Hx Eye Prosthesis, Hx Legally Blind, Hx Hearing Aid Opthamlomology History: Reports: Hx Contacts or Glasses Denies: Hx Eye Injury, Hx Eye Prosthesis, Hx Legally Blind Neurological History: Denies: Hx Seizures, Hx Transient Ischemic Attacks (TIA) - Surgical History Surgery Procedure, Year, and Place: L knee arthroscopy, hernia repairs groin and abd. ICD Infectious Disease History: No Infectious Disease History: Denies: Traveled Outside the [place] in Last 30 Days - Family History Known Family History: Positive: Cardiac Disease Negative: Renal Disease, Respiratory Disease, Seizure Disorder - Social History Alcohol Use: Occasionally Substance Use Type: Reports: None Smoking Status (MU): Never Smoked Tobacco Review of Systems Negative: Fever Positive: Other - persistent and sharp pain that started in the right arm and travelled up to the shoulder and onto the left back. All Other Systems Reviewed And Are Negative: Yes Physical Exam - Summary Physical Exam Summary: VITAL SIGNS: Reviewed. GENERAL: ~Patient is a well-developed and nourished male who is lying comfortable in the stretcher. Patient is not in any acute respiratory distress. HEAD AND FACE: No signs of trauma. No ecchymosis, hematomas or skull depressions. No sinus tenderness. EYES: PERRLA, EOMI x 2, No injected conjunctiva, no nystagmus. EARS: Hearing grossly intact. Ear canals and tympanic membranes are within normal limits. MOUTH: Oropharynx within normal limits. NECK: Supple, trachea is midline, no adenopathy, no JVD, no carotid bruit, no c- spine tenderness, neck with full ROM. CHEST: Symmetric, no tenderness at palpation LUNGS: Clear to auscultation bilaterally. No wheezing or crackles. CVS: Regular rate and rhythm, S1 and S2 present, no murmurs or gallops appreciated. ABDOMEN: Soft, non-tender. No signs of distention. No rebound no guarding, and no masses palpated. Bowel sounds are normal. EXTREMITIES: FROM in all major joints, no edema, no cyanosis or clubbing. Bilateral equal pulses in both arms NEURO: Alert and oriented x 3. No acute neurological deficits. Speech is normal and follows commands. SKIN: Dry and warm Triage Information Reviewed: Yes Vital Signs On Initial Exam: Initial Vitals Temp Pulse Resp BP Pulse Ox 97.9 F 73 16 138/86 99 11/11/17 04:37 11/11/17 04:37 11/11/17 04:37 11/11/17 04:37 11/11/17 04:37 Vital Signs Reviewed: Yes Diagnostics - Vital Signs Vital Signs Temp Pulse Resp BP Pulse Ox 11/11/17 04:37 97.9 F 73 16 138/86 99 - Laboratory Result Diagrams: 11/11/17 05:20 11/11/17 05:20 Lab Statement: Any lab studies that have been ordered have been reviewed, and results considered in the medical decision making process. - Radiology CXR Radiology Interpretation Completed By: Radiologist - CXR reveals no acute disease. - EKG 0454 Cardiac Rate: NL EKG Rhythm: Sinus Rhythm - 68 bpm EKG Interpretation: Normal intervals, normal axis, no ischemic changes. Course/Dx - Course Course Of Treatment: This patient is a 57 year old M presenting to [facility] accompanied by female drapery and upholstery estimator with a chief complaint of upper extremity pain since 0300 today. He states that he felt a persistent and sharp pain that started in the right arm at 0300 and travelled up to the shoulder and onto the left back. Patient includes he took 4 baby aspirin pills BOILING OFF WINDER and was in [facility] at 1200 yesterday with a catheter in his artery. In the ED course the patient was given morphine and ondansetron injections. An EKG reveals sinus rhythm at 68 bpm. Normal intervals, normal axis, no ischemic changes. CXR reveals no acute disease. - Diagnoses Provider Diagnoses: Left-sided back pain Discharge - Discharge Plan Condition: Good Disposition: OTHER Discharge Disposition Comment: Patient is signed out to Dr. Veras, pending disposition, awaiting CT chest Referrals: Non Staff,Doctor [Primary Care Provider] - The documentation as recorded by the Angel wright Jason accurately reflects the service I personally performed and the decisions made by me, Lissa Jenkins MD.
== END 2017-11-11 08:33 ==
LOC: ED 04:28
DX: M54.9 Dorsalgia, unspecified (principal); M79.601 Pain in right arm; Z86.79 Personal history of other diseases of the circulatory system; Z87.19 Personal history of other diseases of the digestive system; I25.2 Old myocardial infarction
CPT/HCPCS: 36415; 71045; 71275; 80053; 82550; 83605; 83735; 84484; 85025; 85610; 85730; 86141; 86850; 86900; 86901; 93005; 96374; 96375; 99283; J2270; J2405; Q9967

== ENCOUNTER 2019-09-01 15:16 | Observation (INO) | payer BC ==
[2019-09-01] MEDS ORDERED: Nitroglycerin TAB 0.4 MG* 0.4 MG TAB SL ONE (15:32)
--- NOTE | 2019-09-01 15:34 | ED ---
HPI Chest Pain - HPI Summary HPI Summary: The patient is a 59 y/o M presenting to [facility] accompanied by with a chief complaint of sudden onset left anterior chest pain onset around 1500 today. He reports that he was sitting in the passenger seat of the car while driving back from a fairly uneventful although somewhat stressful time with his son and , when he began experiencing the chest discomfort that radiated into the left arm and jaw. He self-administered one nitroglycerin and then a second a few minutes later after the pain did not resolve. He also had 81mg Aspirin to no relief. He also states that the pain usually improves if he takes 3 nitroglycerins. Currently, the pain is located mid-sternally and is described as a pressure pain rated 4/10 in severity. He denies diaphoresis or nausea. He notes that he had mild shortness of breath with a 15-mile bike ride approximately a week ago, which he usually doesnt experience. He is not short of breath now. Life Agent is Dr. Clint Calloway in [place]. PMHx: angina, ND, defibrillator, CAD, sustained ventricular tachycardia, HLD, HTN, right coronary artery occlusion, GERD. FHx: cardiac disease. Nonsmoker, occasional EtOH, no substance use. Medications reviewed. Allergies noted. - History of Current Complaint Time Seen by Provider: 09/01/19 15:25 Hx Obtained From: Patient Onset/Duration: Started Minutes Ago, Still Present Time of Onset: 15:00 Timing: Lasting Minutes Initial Severity: Severe Current Severity: Moderate Pain Intensity: 4 Pain Scale Used: 0-10 Numeric Chest Pain Location: Mid Sternal, Left Anterior Chest Pain Radiates: Yes Chest Pain Radiates To:: Shoulder - left, Jaw - left Character: Pressure/Squeezing Aggravating Factor(s): Nothing Alleviating Factor(s): NTG 123 - first to some relief, second to some relief but returned Associated Signs and Symptoms: Positive: Chest Pain. Negative: Shortness of Breath, Diaphoresis, Nausea - Additional Pertinent History Primary Care Physician: [id number] - Allergy/Home Medications Allergies/Adverse Reactions: Allergies Allergy/AdvReac Type Severity Reaction Status Date / Time No Known Allergies Allergy Verified 09/01/19 15:31 Home Medications: Home Medications Irbesartan 300 mg PO DAILY 09/01/19 [History Confirmed 09/01/19] PMH/Surg Hx/FS Hx/Imm Hx Endocrine/Hematology History: Denies: Hx Diabetes Cardiovascular History: Reports: Hx Angina, Hx Auto Implanted Cardiovert Defib, Hx Coronary Artery Disease, Hx Hypercholesterolemia, Hx Hypertension - ON MEDS, Hx Myocardial Infarction, Hx Pacemaker/ICD - 2006, NEW REPALEMENT 2017, Hx Syncope, Other Cardiovascular Problems/Disorders - VT, RCA occlusion Respiratory History: Denies: Hx Asthma, Hx Chronic Obstructive Pulmonary Disease (COPD), Hx Pneumonia, Hx Pulmonary Embolism GI History: Reports: Hx Gastroesophageal Reflux Disease, Hx Hiatal Hernia Denies: Hx Cirrhosis, Hx Diverticulosis History: Denies: Hx Dialysis, Hx Renal Disease Sensory History: Reports: Hx Contacts or Glasses Denies: Hx Eye Injury, Hx Eye Prosthesis, Hx Legally Blind, Hx Hearing Aid Opthamlomology History: Reports: Hx Contacts or Glasses Denies: Hx Eye Injury, Hx Eye Prosthesis, Hx Legally Blind Neurological History: Denies: Hx Seizures, Hx Transient Ischemic Attacks (TIA) - Surgical History Surgical History: Yes Surgery Procedure, Year, and Place: L knee arthroscopy, hernia repairs groin and abd. ICD. defibrillator Infectious Disease History: Denies: Traveled Outside the [place] in Last 30 Days - Family History Known Family History: Positive: Cardiac Disease Negative: Renal Disease, Respiratory Disease, Seizure Disorder - Social History Alcohol Use: Occasionally Hx Substance Use: No Substance Use Type: Reports: None Hx Tobacco Use: No Smoking Status (MU): Never Smoked Tobacco Review of Systems Negative: Skin Diaphoresis Positive: Chest Pain - left anterior radiating into jaw and shoulder developed into mid-sternal pressure Negative: Shortness Of Breath Negative: Nausea All Other Systems Reviewed And Are Negative: Yes Physical Exam - Summary Physical Exam Summary: VITAL SIGNS: Reviewed. GENERAL: Patient is a well-developed and nourished male who is lying comfortable in the stretcher. Patient is not in any acute respiratory distress. HEAD AND FACE: No signs of trauma. No ecchymosis, hematomas or skull depressions. No sinus tenderness. EYES: PERRLA, EOMI x 2, No injected conjunctiva, no nystagmus. EARS: Hearing grossly intact. Ear canals and tympanic membranes are within normal limits. MOUTH: Oropharynx within normal limits. NECK: Supple, trachea is midline, no adenopathy, no JVD, no carotid bruit, no c- spine tenderness, neck with full ROM. CHEST: Symmetric, no tenderness at palpation. Left AICD. LUNGS: Clear to auscultation bilaterally. No wheezing or crackles. CVS: Regular rate and rhythm, S1 and S2 present, no murmurs or gallops appreciated. ABDOMEN: Soft, non-tender. No signs of distention. No rebound, no guarding, and no masses palpated. Bowel sounds are normal. EXTREMITIES: FROM in all major joints, no edema, no cyanosis or clubbing. NEURO: Alert and oriented x 3. No acute neurological deficits. Speech is normal and follows commands. SKIN: Dry and warm. Triage Information Reviewed: Yes Vital Signs Reviewed: Yes Procedures - Sedation Patient Received Moderate/Deep Sedation with Procedure: No Diagnostics - Laboratory Result Diagrams: 09/01/19 16:05 09/01/19 16:05 Lab Statement: Any lab studies that have been ordered have been reviewed, and results considered in the medical decision making process. - Radiology Chest X-Ray Radiology Interpretation Completed By: Radiologist Summary of Radiographic Findings: Impression: 1. No acute cardiopulmonary process by radiograph. 2. Left chest wall AICD. ED physician has reviewed this report. - EKG 1519 Cardiac Rate: NL - 89 BPM EKG Rhythm: Sinus Rhythm Summary of EKG Findings: EKG at 1519 reveals normal sinus rhythm at 89 BPM. Normal axis. No ST elevations. ED physician has reviewed and interpreted this EKG. Re-Evaluation - Re-Evaluation First Eval Re-Evaluation Time: 16:00 Change: Worse Comment: Patient's pain resolved but returned; we will start nitropaste. Chest Pain Course/Dx - Course Assessment/Plan: This patient is a 59-year-old male who presents to the emergency department with a chief complaint of having chest pain. Past medical history: Coronary artery disease, Angina, Right coronary artery occlusion, Hypertension, Dyslipidemia, Squamous cell carcinoma of the skin. The patient is complaining of chest pressure. Therefore. the patient was given nitroglycerin. After the nitroglycerin, the patients symptoms improved. EKG shows a normal sinus rhythm without ST elevations. Chest x-ray impression: No acute pathology. Patient developed chest pain again; therefore, the patient was placed in the Nitropaste. At this time the patient is feeling better. Blood test results without any significant abnormality except for glucose of 145. Heart to score is equal to 5. Because of the patients comorbidities. I discussed my physical exam and test results with Dr. Caballero from the hospitalist services, and she agrees to admit the patient to her services. The patient is hemodynamically stable alert and oriented x 3. - Chest Pain Differential Diagnosis/HQI/PQRI: Acute ND, ACS, Angina, CHF, Chest Wall, GI Disease, Lower Respiratory Infection, Pulmonary Edema - Diagnoses Provider Diagnoses: Chest pain - Provider Notifications Discussed Care Of Patient With: Socorro Caballero - hospitalist Time Discussed With Above Provider: 17:40 Instructed by Provider To: Admit As Observation - I discussed the patients case with Dr. Caballero, who accepts the patient for admission. Discharge ED - Sign-Out/Discharge Documenting (check all that apply): Patient Departure - Patient accepted for admission by Dr. Caballero. - Discharge Plan Condition: Stable Disposition: ADMITTED TO [facility] Referrals: Pako Mendoza MD [Primary Care Provider] - - Attestation Statements Document Initiated by Deborahibe: Yes Documenting Scribe: Brea Romero Provider For Whom Brenda is Documenting (Include Credential): Dr. Rafael Veras MD Scribe Attestation: I, Brea Romero, scribed for Dr. Rafael Veras MD on 09/01/19 at 1814. Status of Scribe Document: Ready
[2019-09-01] MEDS ORDERED: Nitro 2% OINT* (Nitroglycerin) 1 INCH/PAK PAK TOPICAL ONE (15:58)
[2019-09-01] MEDS ORDERED: NS 0.9% 1000 ML** 1,000 ML IV ONE (15:59)
[2019-09-01] MEDS ORDERED: Nitro 2% OINT* (Nitroglycerin) 1 INCH/PAK PAK ONE (16:00)
[2019-09-01 16:17] LABS: ABS Basophils 0.1 10^3/ul (0-0.2); ABS Eosinophils 0.1 10^3/ul (0-0.6); ABS Lymphocytes 1.8 10^3/ul (1.0-4.8); ABS Monocytes 0.7 10^3/ul (0-0.8); ABS Neutrophils 3.2 10^3/ul (1.5-7.7); Eosinophil % 2.5 %; Hematocrit 44 % (42-52); Hemoglobin 15.2 g/dL (14.0-18.0); Lymphocyte % 30.5 %; Mean Corpuscular HGB Conc 35 g/dL (31-36); Mean Corpuscular Hemoglobin 32 pg (27-31); Mean Corpuscular Volume 92 fL (80-94); Mean Platelet Volume 7.9 fL (7.4-10.4); Platelet Count 194 10^3/uL (150-450); Red Blood Count 4.77 10^6 /uL (4.18-5.48); Red Cell Distribution Width 13 % (10-15); White Blood Count 5.9 10^3/uL (3.5-10.8)
[2019-09-01 16:33] LABS: Albumin/Globulin Ratio 1.5 (1-3); BUN/Creatinine Ratio 12.4 (8-20); EGFR African American 96.2 (>60); EGFR Non-African American 79.5 (>60); Globulin 2.7 g/dL (2-4); Potassium 3.6 mmol/L (3.5-5.0); Total Bilirubin 0.7 mg/dL (0.2-1.0); Total Protein 6.7 g/dL (6.4-8.9)
[2019-09-01 16:35] LABS: Troponin I 0.01 ng/mL (<0.03)
[2019-09-01 16:36] LABS: INR 0.98 (0.82-1.09)
[2019-09-01 16:37] LABS: CKMB ng/mL 2.6 ng/mL (0.6-6.3)
[2019-09-01] MEDS ORDERED: Nitroglycerin TAB 0.4 MG* 0.4 MG TAB SL PRN ×2 (18:41→19:00)
[2019-09-01] MEDS: Metoprolol Tartrate TAB* 25 MG PO SCH (21:00)
--- NOTE | 2019-09-01 21:13 | HP ---
HISTORY AND PHYSICAL: DATE OF ADMISSION: 09/01/19 ADMITTING PROVIDER: Josef Worley MD. OUTPATIENT SEWAGE PLANT OPERATOR: Dr. Clint Calloway, [place]. PRIMARY CARE PROVIDER: Dr. Mendoza. CHIEF COMPLAINT: Chest pain radiating to the left shoulder and jaw, unrelieved after 3 nitroglycerin. HISTORY OF PRESENT ILLNESS: Go Arauz is a 59-year-old male with past medical history of myocardial infarction/CAD with a known totally occluded RCA ( 2005), SVT, status post AICD in March 2017, hypertension, hyperlipidemia, GERD, and anxiety. Since March, he has had 3 to 4 episodes of angina, which is usually resolved after taking a third nitroglycerin. He has been in close contact with Dr. Calloway, his outpatient electronic warfare specialist about these events. He was driving on the day of admission when he had sudden onset of chest pressure substernally with radiation to his left shoulder and left jaw. He took his 1 nitroglycerin without much relief, a second one again without much relief ( although the shoulder and jaw pain did subside). He still had slight headache. He took 4 baby aspirin and his convinced him to present to the [facility] Emergency Room. He had a third nitroglycerin there and had 7 minutes of relief before return of the pain and 4/10 pressure. Nitroglycerin ointment was then applied and he has had chest pain resolution since that time. Initial troponin was 0.01. EKG is without ischemic changes and he is referred to hospitalist service for admission given his high-risk cardiac history and continued chest pressure until continuous nitroglycerin. He initially was very resistant to the idea of coming to this hospital unless his cardiac enzymes were positive. He later changed his mind. 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 Just last week, he was in [facility] and went on a prolonged bike ride in the cold, which made him short of breath, but no anginal-like symptoms. His latest left heart catheterization was on 11/15/[address] Tesfaye, which showed second diagonal 50 % stenosis and distal circ 30% to 40% stenosis and again occlusion of the RCA with good collaterals. He attests to intolerance of at least 4 beta-merlyn trials in the past due to reasons of lightheadedness and bradycardia (down to 41 ) when he does exercise. He is amenable to beta-blockade in this acute setting. PAST MEDICAL HISTORY: Myocardial infarction in 2005 with total RCA occlusion, SVT, status post AICD in March 2017, hypertension, hyperlipidemia, GERD, intermittent angina. MEDICATIONS: Include: 1. Amlodipine 2.5 mg p.o. daily. 2. Protonix 40 mg daily. 3. Nitroglycerin 0.4 mg sublingual p.r.n. 4. Irbesartan 300 mg p.o. daily. 5. Cholecalciferol 2000 units p.o. daily. 6. Lipitor 80 mg p.o. daily. 7. Aspirin 81 mg daily. ALLERGIES: No known drug allergies. FAMILY HISTORY: His father and mother both are alive with dementia. Father had a CABG at 83 and prostate cancer. Sister has PVCs. Brother has gout. Paternal grandfather had a massive heart attack, which killed him at approximately age 75. 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 He is a never smoker and occasional alcohol use, no drug use. He desires to be a full code, and if necessary, would get a bypass surgery, but he would refuse any [place] or LVAD procedures, and if the resuscitation lasts longer than 10 minutes, he would request that the code be called. Medical surrogate is his , Dina. REVIEW OF SYSTEMS: A complete 14-point review of systems is negative, except as per HPI. PHYSICAL EXAMINATION GENERAL APPEARANCE: No acute distress. VITAL SIGNS: Temperature 98.0, pulse between 66 and 84, respiratory rate is between 16 and 26, blood pressure initially 142/78 dropping down to 97/49. It was 140 systolically in the room on my evaluation. HEENT: Normocephalic, atraumatic. Pupils are equal, round, and reactive to light. Extraocular motions are intact. No scleral icterus. LUNGS: Clear to auscultation bilaterally with no wheezing, rales, or rhonchi. CARDIOVASCULAR: Regular rate and rhythm. No murmurs, rubs, or gallops. ABDOMEN: Soft, nontender, nondistended. EXTREMITIES: Warm, well perfused. No pedal edema. NEUROLOGIC: Cranial nerves II through XII intact. 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 Moving all extremities. SKIN: No lesions or rashes. DIAGNOSTIC STUDIES/LAB DATA: White count 5.9, hemoglobin 15.2, hematocrit 44, platelets 194. INR was 0.98. Sodium 137, potassium 3.6, carbon dioxide 25, BUN 12, creatinine 0.97, glucose 145, calcium 9.0, magnesium 2.0. Total bili 0.7, AST 23, ALT 24, alk phosphatase 58. Troponin is 0.01 and BNP is 16. Albumin is 4.0, TSH is 1.54. Imaging: Chest x-ray demonstrated no acute cardiopulmonary process and a left chest wall AICD. EKG demonstrated normal sinus rhythm. No ST elevations or depressions. Q wave in aVL, which has been seen on some EKGs in the past. The first EKG was at 1519 and repeat EKG just now at 1902 is unchanged, normal sinus rhythm. ASSESSMENT AND PLAN: Go Arauz is a 59-year-old male with past medical history of myocardial infarction, coronary artery disease with known total occlusion of the RCA with good collaterals with residual 2-vessel disease of the second diagonal and distal circ on last cath in 2017. He has had increasing episodes of anginal symptoms, usually resolved by third nitroglycerin since March. At this time, it did not resolve and he had new symptoms of left shoulder and left jaw discomfort associated. He has had left arm pain back in 2005 as well when he had his heart attack (it actually occurred 3 days in a row before he presented for evaluation). He is status post third nitroglycerin and now on nitro ointment, which finally relieved his symptoms. He has got 324 mg of aspirin in the field. He is amenable to starting beta-blockade in this acute setting and I will start metoprolol tartrate 25 mg p.o. q.6 hours. We will continue his Lipitor 80 mg p.o. daily ( he had a first dose already this morning). Continue aspirin 81 mg p.o. daily. He is being admitted to cardiac telemetry unit. He is past due for his next troponin, and if that is positive, given his concerning story, I will put him on a heparin drip. Continue to trend every 3 hours until peak; if negative, we would pursue a stress test in the morning. If positive, we will consider heart catheterization, but I have also reached out to Dr. Koehler so that the patient will be seen hopefully tomorrow by the Cardiology Service. In general, the patient does express a preference to get cardiac care out in [place] with Dr. Clint Calloway, his home electronic warfare specialist. I will be getting hemoglobin A1c, he did have glucose up to 145 here. I will be getting be fasting lipid panel in the morning. He will be made NPO. He is a full code, but with the stipulations as per the social history above. Medical surrogate is his , Dina. Given his multivessel disease and potential need for bypass graft, we will hold off on Plavix or Brilinta at this time. [id number]/CPS #: [id number] HIRAL
[2019-09-01 22:43] LABS: Urine Appearance Clear; Urine Bilirubin Negative (Negative); Urine Blood Negative (Negative); Urine Color Yellow; Urine Glucose Negative (Negative); Urine Ketones Negative (Negative); Urine Nitrite Negative (Negative); Urine Protein Negative (Negative); Urine Specific Gravity 1.012 (1.010-1.030); Urine Urobilinogen Negative (Negative)
[2019-09-02] MEDS: Metoprolol Tartrate TAB* 25 MG PO SCH ×3 (01:03→09:45)
[2019-09-02 06:40] LABS: HDL Cholesterol 38.1 mg/dL
[2019-09-02] MEDS ORDERED: amLODIPine TAB* 5 MG PO SCH (09:00)
[2019-09-02] MEDS ORDERED: Cholecalciferol TAB* 1000 UNITS PO SCH (09:00)
[2019-09-02] MEDS ORDERED: Atorvastatin* 80 MG TAB PO SCH (09:00)
[2019-09-02] MEDS ORDERED: Aspirin EC TAB* 81 MG TAB.EC PO SCH (09:00)
[2019-09-02] MEDS ORDERED: Pantoprazole TAB * 40 MG TAB PO SCH (09:00)
[2019-09-02] MEDS ORDERED: Losartan TAB* 25 MG PO SCH (09:00)
[2019-09-02 11:53] VITALS: BP 113/80
--- NOTE | 2019-09-02 13:25 | CONS ---
CC: Dr. Clint Calloway, Cardiology Department, [facility], [place], [place] * CARDIOLOGY CONSULTATION DATE OF CONSULT: 09/02/2019. INDICATION FOR CONSULTATION: Coronary artery disease, angina. HISTORY OF PRESENT ILLNESS: This is a 59-year-old gentleman with a history of known coronary artery disease, history of an occluded right coronary artery diagnosed originally in 2006, and history of ICD implantation who comes into the hospital because of angina. The patient states he was driving back from [employer] yesterday, he got into [place] and started having chest pain. He described it as a pressure in the center of his chest. It did radiate up into his jaw. He felt otherwise "funny." He took four aspirin and a sublingual nitroglycerin in the car with some improvement in his symptoms, but not complete resolution. He decided to come to the emergency room. While in the emergency room, he did have mild chest discomfort. He had a nitroglycerin patch placed and subsequently became pain free. He was observed overnight. Overnight he had one more episode of chest pain around midnight. His troponin levels have been negative times four. The patient underwent an exercise nuclear stress test today. He exercised for a little over 11 minutes. He had no chest pain, no EKG changes. His blood pressure was normal. His nuclear images show a very small area of mixed infarct ischemia to the base of his inferior wall that is normal on attenuation correction. His anterolateral and apical watt have normal perfusion. In speaking with the patient today, he has no chest pain. PAST MEDICAL HISTORY: Significant for coronary artery disease, occluded right coronary artery as described above, history of SVT, history of ICD implantation , hypertension, hyperlipidemia, gastroesophageal reflux disease. MEDICATIONS: 1. Amlodipine 2.5 mg a day. 2. Protonix 40 mg a day. 3. Irbesartan 300 mg a day. 4. Calciferol 2,000 units a day. 5. Lipitor 80 mg a day. 6. Aspirin 81 mg a day. ALLERGIES: No true allergies, but has been INTOLERANT OF BETA BLOCKERS IN THE PAST because of bradycardia. FAMILY HISTORY: Father had coronary bypass surgery at 83 and prostate cancer. 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 He denies tobacco or alcohol use. He exercises on a regular basis. REVIEW OF SYSTEMS: Negative for fevers and chills. Negative for changes in bowel or bladder habits. Negative for changes in weight. Other 12 point review is unremarkable. PHYSICAL EXAM: Vital Signs: Height 5'10", weight 213 pounds. Temperature 97.7 , heart rate 56, blood pressure 113/80, respiratory rate 16, oxygen saturation 97 percent on room air. HEENT: Sclerae anicteric. Oropharynx is pink without erythema. Neck: Carotids are 2 + without bruits. JVD is normal. Thyroid is normal. Cardiac: S1, S2 without any murmurs, rubs, or gallops. Lungs: Clear to auscultation. Extremities: No edema. He has 2+ pulses throughout. Neuro: The patient is awake, alert, and oriented. He moves all four extremities equally. DIAGNOSTIC STUDIES/LAB DATA: EKG shows normal sinus rhythm with nonspecific T- wave abnormalities. CBC within normal limits. Chemistries within normal limits. Total cholesterol 133, LDL 80, HDL 38. Exercise nuclear stress test as described above. IMPRESSION: [id number]-old gentleman with a history of coronary artery disease was admitted to the hospital with concerning angina. The patient was ruled out for a myocardial infarction. He had no EKG changes that were concerning. His nuclear stress test is unremarkable. Again, he exercised for ten minutes. He had a very small area of mixed infarct ischemia to the base of his inferior wall. RECOMMENDATIONS: For now my recommendation is to continue him on his current medications. The patient is going to follow-up with Dr. Calloway. The patient may benefit from beta merlyn therapy. Again, in the past he has been somewhat intolerant of that because of low heart rates. Again, follow-up will be with Dr. Calloway. This case was discussed with Dr. Rush. [id number]/[facility] #: [id number] [facility]PITALRaine
--- NOTE | 2019-09-02 22:31 | DS ---
CC: Dr. Pako Mendoza; Dr. Delfino Velázquez * DISCHARGE SUMMARY: DATE OF ADMISSION: 09/01/19 DATE OF DISCHARGE: 09/02/19 PRIMARY CARE PHYSICIAN: Dr. Pako Mendoza. PRIMARY DIAGNOSES: 1. Angina. 2. Coronary artery disease. SECONDARY DIAGNOSES: 1. Hypertension. 2. History of supraventricular tachycardia. 3. Hyperlipidemia. 4. Gastroesophageal reflux disease. CONSULTS: Dr. Delfino Vleázquez. DISCHARGE MEDICATIONS: 1. Aspirin 81 mg daily. 2. Atorvastatin 80 mg daily. 3. Irbesartan 300 mg daily. 4. Amlodipine 2.5 mg daily. 5. Nitroglycerin 0.4 mg every 5 hours as needed for chest pain. 6. Pantoprazole 40 mg daily. 7. Vitamin D 2000 units daily. HISTORY OF PRESENT ILLNESS: Mr. Arauz is a 59-year-old man with a history of myocardial infarction with totally occluded RCA in 2005, history of SVT, status post AICD in March 2017, hypertension, hyperlipidemia, GERD, and anxiety. The patient reports that for the last 6 months he has had 3 to 4 episodes of angina which usually resolve after taking nitroglycerin. He has been following with Dr. Calloway of Cardiology in [place]. On day of presentation, he was driving when he had a sudden onset of acute chest pain radiating to his shoulder and jaw. The pain did not improve with 2 doses of nitro, but the shoulder and jaw pain subsided. He took 4 baby aspirin and presented to the ER. 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 Last week he was in [facility] and went on a prolonged bike ride in the cold which made him short of breath, but he denied angina-like symptoms at that time. His last left heart catheterization was on 11/15/17, with Dr. Tesfaye which showed second diagonal 50 % stenosis and distal circ 30% to 40% stenosis and again occlusion of the RCA with good collaterals. He reports a history of intolerance to beta-blockers, either causing headaches and fatigue or significant bradycardia. HOSPITAL COURSE: In the emergency room, the patient had third nitroglycerin with 7 minutes of relief and then return of the pain to 4/10 pressure. Nitroglycerin ointment was then applied and he experienced resolution of his chest pain. His troponins were negative x3 and his EKG was without ischemic changes, so he was referred to the hospitalist service for admission for stress test. Initially, the patient was very resistant to the idea of admission unless his cardiac enzymes were positive; however, he later changed his mind with the assistance of his . By next morning, the patient was seen by Dr. Velázquez of Cardiology and underwent a nuclear exercise stress test. The stress test returned normal and low risk and the patient was deemed safe for discharge to trial beta- merlyn or long-term nitrate therapy with his outpatient continuous towel roller. This information was communicated with the patient, he was amenable to this plan and had denied all symptoms on a 10-point review of systems on the afternoon of discharge. PHYSICAL EXAMINATION: Vital Signs: Afebrile, heart rate 56, blood pressure 113 /80, respiratory rate 16, oxygen saturation 97% on room air. General: He is a well-appearing man, in no acute distress, who is alert and interactive. HEENT: With OP clear. No scleral icterus. Neck: No JVD. Supple. Lungs: Clear to auscultation bilaterally. Heart: Regular rate and rhythm. No murmurs, gallops , or rubs. Abdomen: Soft, nontender, nondistended. Extremities: Warm and well perfused without evidence of edema. Neuro: A and O x3. No focal deficits. PERTINENT DIAGNOSTIC STUDIES: CBC, BMP, and LFTs unremarkable. Troponin negative x3. A1c 5.5%. BNP 16. LDL 80, HDL 38, total cholesterol 133, and triglycerides 74. TSH 1.54. Nuclear stress test without evidence for stress-induced ischemia or presence of a fixed myocardial perfusion defect to indicate site of infarct. Hypokinesis at the septum and mid to basilar segments of the inferior wall similar to the prior exam. Normal range estimated left ventricular ejection fraction. Assessment is low risk based on nuclear portion. DISCHARGE PLAN: The patient will follow up with his primary care physician as well as his outpatient continuous towel roller in [place]. His home medications are to be continued as before, and his outpatient continuous towel roller can consider long-acting nitrates or again trialing a very low-dose beta-merlyn. He should eat a healthy diet, low in processed foods and resume a healthy exercise program. He and his were educated on return precautions, which include, but are not limited to recurrence of severe chest pain or new symptoms of shortness of breath, palpitations, lightheadedness. DISPOSITION: To home. CONDITION: Good. TIME SPENT: Approximately 60 minutes were spent on discharge of this patient, more than half of which was spent at bedside for interview, exam and care coordination. [id number]/[facility] #: [id number] MTDD
== END 2019-09-02 13:29 | disposition home or self-care (01) ==
LOC: ED 15:16 → MEDTELE 18:39
PROVIDERS: ADMIT Internal Medicine; ATTEND Internal Medicine
DX: I25.119 Atherosclerotic heart disease of native coronary artery with unspecified angina pectoris (principal); I10 Essential (primary) hypertension; I47.1 Supraventricular tachycardia; E78.5 Hyperlipidemia, unspecified; K21.9 Gastro-esophageal reflux disease without esophagitis; Z79.82 Long term (current) use of aspirin; Z79.899 Other long term (current) drug therapy; I25.2 Old myocardial infarction; Z95.810 Presence of automatic (implantable) cardiac defibrillator
CPT/HCPCS: 36415; 71045; 78452; 80053; 80061; 81003; 82550; 82553; 83036; 83735; 83880; 84443; 84484; 85025; 85610; 93005; 93017; 96360; 99283; A9270-GY; A9502; G0378